=== PATIENT | female | born 1995 | race Caucasian/White ===

== ENCOUNTER 2021-04-08 07:28 | Emergency (ER) | payer OTHER, SELFPAY ==
[2021-04-08 07:42] VITALS: PULSE 111; RESP 16; TEMP 37.2; O2SAT 97; BMI 44.3
--- NOTE | 2021-04-08 08:14 | XR_ITS ---
WS: [id number] XR chest 1V portable [id number] REASON FOR EXAM: Covid, SOB FINDINGS: The heart and mediastinum are within normal limits. Calcified granulomatous changes in both hemithoraces. No acute pulmonary parenchymal or pleural abnormality. Bony thorax intact. XR/XR chest 1V portable [id number] IMPRESSION: No acute chest abnormality.
--- NOTE | 2021-04-08 08:29 | W.ED.COVID ---
Documented by User: Jacy Carolina PA-C 04/08/21 09:40 HPI - COVID General: Chief Complaint: COVID symptoms Stated Complaint: SOB,SORE THROAT, COUGH, CONGESTION, FEVER Time Seen by Provider: 04/08/21 07:36 Source: patient Mode of arrival: ambulatory Limitations: no limitations Triage information: Has fever, cough or shortness of breath. Exposure to COVID + person last 14 days History of Present Illness: HPI Narrative: 25-year-old female presents to the ER today for worsening shortness of breath. Patient reports she started feeling bad 7 days ago and tested positive for COVID. Patient reports she has been taken [id number] medications with no improvement. Patient reports that shortness of breath and overall feeling bad is significantly worse today. Patient reports her throat is extremely tender and it feels like swallowing knives. Patient reports it is difficult to eat or drink due to the sore throat. Prior covid testing: yes, results known COVID 19 common symptoms: positive fever(s), chills, cough, fatigue, throat pain and nasal congestion Onset (ago): day(s) (7) Severity: moderate Pertinent comorbid conditions: obesity Treatment prior to arrival: acetaminophen, ibuprofen and cold medicine COVID Results: No Data to Display Review of Systems General: Reports: 10 or more systems reviewed and unremarkable except in HPI and below Const: Reports: fever(s), chills and fatigue ENMT: Reports: throat pain and nasal congestion Physical Exam Const: COMMON NORMALS: patient oriented x3 GENERAL APPEARANCE: cooperative, comfortable and ill appearing NUTRITIONAL APPEARANCE: obese HENMT: COMMON NORMALS: normocephalic, atraumatic, external ears normal and Normal external nose present HEAD & SCALP: normocephalic and atraumatic NOSE: Normal external nose present, Abnormal mucous membranes and turbinates present erythematous and Nasal discharge present clear EXTERNAL EAR: Yes external ears normal THROAT: posterior oropharynx normal Eye: COMMON NORMALS: conjunctivae normal CONJUNCTIVA: Yes conjunctivae normal Neck/C-Spine: COMMON NORMALS: full ROM and no lymphadenopathy Resp: COMMON NORMALS: normal respiratory effort and No retractions EFFORT & INSPECTION: Yes able to speak in complete sentences AUSCULTATION: no rales, no rhonchi and no wheezes Cardio: COMMON NORMALS: regular rhythm RATE: tachycardic RHYTHM: regular rhythm GI: COMMON NORMALS: Normal to inspection, nondistended, normoactive bowel sounds present, Soft to palpation and non-tender PALPATION: Yes Soft to palpation Extremity: COMMON NORMALS: normal to inspection and full ROM Neuro: COMMON NORMALS: patient oriented x3, moves all extremities, no sensory deficits noted and gait normal Psych: COMMON NORMALS: mental status grossly normal, Normal thought process present and cooperative MOOD & AFFECT: Yes tearful THOUGHT PROCESS: Normal thought process present Skin: COMMON NORMALS: no rashes or lesions noted and no wounds GENERAL SKIN EXAM: no rashes or lesions noted Course ED course: Patient presents to the ER COVID-positive and feeling worse. We will do a chest x-ray as she has some mildly diminished lung sounds. We will also check flu and strep to rule out secondary infection causing symptoms. Patient's vitals are stable with oxygen saturation at 97%. Vital Signs: Vital signs: Vital Signs Temperature 99.0 F 04/08/21 07:42 Pulse Rate 118 H 04/08/21 10:14 Respiratory Rate 20 H 04/08/21 10:14 Blood Pressure 154/107 04/08/21 10:14 Pulse Oximetry 95 04/08/21 10:14 MDM - COVID MDM Narrative: Medical decision making narrative: 25-year-old female presents to the ER today for cough, sore throat, fatigue, shortness of breath. Patient was diagnosed with COVID 7 days ago. Patient reports symptoms have continued to worsen with today being the worst. Patient's vitals are stable at this time, patient is sating 97% on room air. Patient would qualify for the monoclonal antibody infusion however there are no openings today and by Sunday when it is given again, patient will be outside the treatment window. Recommended the patient she take Mucinex 1200 mg twice a day. We will try Tessalon Perles for the cough given how sore her throat is. Recommended rest and increasing her fluid intake. Follow-up with primary care in 1 week if no improvement. Return to the ER for new or worsening symptoms. Patient verbalized understanding and is in agreement with the treatment plan. Lab Data: Labs: Lab Results 04/08/21 04/08/21 08:17 08:17 Influenza Type A A g Negative (Negative) Influenza Type B A g Negative (Negative) Group A Strep Rapi d Negative (Negative) Imaging Data: CXR: Radiologist's impression: [address] [place] [address] XRay Report Signed Patient: Senait Roper Unit #: [id number] : 1995 Age/Sex: 25 / F ADM Date: 04/08/21 Loc: ER Room/Bed: Attending Dr: Ordering Provider/Ordering MD: Jacy Carolina Date of Service: 04/08/21 Procedure(s): XR chest 1V portable [id number] Accession Number(s): [id number] Report Number: [id number] WS: [id number] XR chest 1V portable [id number] REASON FOR EXAM: Covid, SOB FINDINGS: The heart and mediastinum are within normal limits. Calcified granulomatous changes in both hemithoraces. No acute pulmonary parenchymal or pleural abnormality. Bony thorax intact. XR/XR chest 1V portable [id number] IMPRESSION: No acute chest abnormality. Dictated By: Tom Rodríguez Jr, MD Signed By: Tom Rodríguez Jr, MD Signed Date/Time: 04/08/21903 DD/ 2 COVID Results: No Data to Display Critical Care Time Critical Care Time: Critical Care Time: No Monoclonal Antibody - ED Inclusion/Exclusion Criteria age >/= 12 years, weight >/= 40kg /88lbs, symptom onset less than 10 days ago and + direct Sars-Cov-2 test less than 7-10 days ago obesity (BMI >25 or 85%til for age) not requiring hospitalization, not requiring oxygen (if not chronically on oxygen) and no increase oxygen requirement (if chronically on oxygen) Patient education Emergency Use Authorization/unapproved drug status discussed with patient/family/caregiver, alternatives to this treatment discussed with patient/family/caregiver and risks and benefits of medication reviewed with patient/family/caregiver Plan for treatment Meets criteria for Monoclonal Antibody infusion Date of symptom(s) onset: 04/02/21 Other information Patient would like infusion however there are no available appointments today and patient will be outside the treatment window next week and will not qualify. I advised patient to check with other facilities if she is not interested in the infusion. Discharge Plan Discharge Patient Disposition: Home Clinical Impression: COVID-19 Condition: Stable Prescriptions: New Tessalon Perles 100 mg capsule 100 mg PO TID PRN (Reason: cough) Qty: 30 RF: 0 No Action omeprazole 40 mg capsule,delayed release(DR/EC) 40 mg PO QAM RF: 0 Vitamin C 500 mg Tablet 500 mg PO DAILY RF: 0 Oqg-Rw-Cmrpstqh 0.18/0.215/0.25 mg-25 mcg tablet 1 tab PO QAM RF: 0 NyQuil Liquicaps Capsule 2 cap PO BEDTIME PRN (Reason: Cold Symptoms) RF: 0 Dayquil Cold And Flu 2 cap PO Q6H PRN (Reason: Cold Symptoms) RF: 0 Vitamin D3 1 cap PO DAILY RF: 0 Discharge Orders: Discharge ED (Routine); Ordered 04/08/21 Ordered By: Jacy Carolina Discharge Diet: Usual diet Discharge Activity: Resume usual activity Patient Instructions: Opioid Safety Activity Restrictions/Additional Instructions: Take Tessalon Perles as prescribed for cough. Increase fluid intake. Mucinex 1200 mg twice daily recommended. Rest recommended. Follow-up with PCP in 1 week if no improvement. Return to the ER with new or worsening symptoms Coding Level of Care Code ED Quality Assurance Monitor Final for Chg Fwd Exam Comprehensive Documented by User: Allan Hurley DO 04/09/21 13:47 HPI - COVID General: Chief Complaint: COVID symptoms Stated Complaint: SOB,SORE THROAT, COUGH, CONGESTION, FEVER Time Seen by Provider: 04/08/21 07:36 COVID Results: No Data to Display Course Vital Signs: Vital signs: Vital Signs Temperature 99.0 F 04/08/21 07:42 Pulse Rate 118 H 04/08/21 10:14 Respiratory Rate 20 H 04/08/21 10:14 Blood Pressure 154/107 04/08/21 10:14 Pulse Oximetry 95 04/08/21 10:14 MDM - COVID MDM Narrative: Medical decision making narrative: Chart reviewed and patient discussed with midlevel. Agree with assessment and plan. Lab Data: Labs: Lab Results 04/08/21 04/08/21 08:17 08:17 Influenza Type A A g Negative (Negative) Influenza Type B A g Negative (Negative) Group A Strep Rapi d Negative (Negative) COVID Results: No Data to Display Discharge Plan Discharge Patient Disposition: Home Clinical Impression: COVID-19 Condition: Stable Prescriptions: New Tessalon Perles 100 mg capsule 100 mg PO TID PRN (Reason: cough) Qty: 30 RF: 0 No Action omeprazole 40 mg capsule,delayed release(DR/EC) 40 mg PO QAM RF: 0 Vitamin C 500 mg Tablet 500 mg PO DAILY RF: 0 Dle-Bn-Uxdkishk 0.18/0.215/0.25 mg-25 mcg tablet 1 tab PO QAM RF: 0 NyQuil Liquicaps Capsule 2 cap PO BEDTIME PRN (Reason: Cold Symptoms) RF: 0 Dayquil Cold And Flu 2 cap PO Q6H PRN (Reason: Cold Symptoms) RF: 0 Vitamin D3 1 cap PO DAILY RF: 0 Discharge Orders: Discharge ED (Routine); Ordered 04/08/21 Ordered By: Jacy Carolina Discharge Diet: Usual diet Discharge Activity: Resume usual activity Patient Instructions: Opioid Safety Activity Restrictions/Additional Instructions: Take Tessalon Perles as prescribed for cough. Increase fluid intake. Mucinex 1200 mg twice daily recommended. Rest recommended. Follow-up with PCP in 1 week if no improvement. Return to the ER with new or worsening symptoms Coding Level of Care Code ED Quality Assurance Monitor Final for Shan Fwd Exam Comprehensive
[2021-04-08 09:14] LABS: Rapid Strep A Test Negative (Negative)
[2021-04-08 09:33] LABS: Influenza A by IFA Negative (Negative); Influenza B by IFA Negative (Negative)
[2021-04-08 09:48] VITALS: O2SAT 96
[2021-04-08 10:14] VITALS: BP 154/107; PULSE 118; RESP 20; O2SAT 95
== END 2021-04-08 10:11 | disposition home or self-care (01) ==
PROVIDERS: Emergency Provider Physician Assistant
DX: U07.1 COVID-19 (principal)
CPT/HCPCS: 71045; 87081; 87804; 87880; 99283

== ENCOUNTER 2024-08-06 13:08 | Outpatient (CLI) | payer OTHER, SELFPAY | END 2024-08-06 13:09 | disposition home or self-care (01) | LOC: SLEEP 13:10 | PROVIDERS: Referring Provider Nurse Practitioner Family; Visit Provider Internal Medicine Pulmonary Disease | DX: G47.33 Obstructive sleep apnea (adult) (pediatric) (principal) | CPT/HCPCS: G0399 ==